=== PATIENT | male | born 1995 | race African-American/Black ===

== ENCOUNTER 2021-04-18 00:08 | Emergency (ER) | payer SELFPAY ==
[~2021-04-18] VITALS: Ht 182.9 cm; Wt 76.2 kg
--- NOTE | 2021-04-18 00:25 | NUR ---
PATIENT BIBRA 60 FROM [facility] [facility] FOR ETOH. PATIENT STATED TO SMOKING METH. PATIENT A/O X 4, RR EVEN AND UNLABORED, NO SOB NOTED. PATIENT CONNECTED TO MONITOR.
--- NOTE | 2021-04-18 01:27 | NUR ---
RAD AT BEDSIDE
[2021-04-18 05:35] VITALS: BP 124/88
--- NOTE | 2021-04-18 05:35 | NUR ---
Patient discharged to home in stable condition. Written and verbal after care instructions given. Patient verbalizes understanding of instruction.
== END 2021-04-18 05:38 | disposition home or self-care (01) ==
LOC: ER 00:10
DX: R46.89 Other symptoms and signs involving appearance and behavior (principal); M79.604 Pain in right leg; Z59.0 Homelessness
CPT/HCPCS: 73610-TC